=== PATIENT | male | born 2000 | race Caucasian/White ===

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

== ENCOUNTER 2020-01-25 16:34 | Emergency (ER) | payer BC, OTHER ==
[~2020-01-25] VITALS: Ht 193 cm; Wt 113.4 kg
[2020-01-25] MEDS ORDERED: SPIRONOLACTONE100 MG NG (16:49)
[2020-01-25] MEDS ORDERED: ESTRADIOL2 MG PO (16:49)
--- NOTE | 2020-01-26 15:19 | EKG ---
[facility] [address] [place] [address] Signed Normal sinus rhythm with sinus arrhythmia Normal ECG No previous ECGs available Confirmed by RENETTA POTTER DO ([id number]) on 01/26/2020 11:01:17 AM Electronically Signed By: RENETTA POTTER DO 01/26/20 1519 PATIENT NAME: MORENO MCPHERSON REREEMILYSHIRA Electrocardiogram DATE OF : [birth year] PHYSICIAN: RENETTA POTTER DO REPORT #: [id number] REPORT IS CONFIDENTIAL AND NOT TO BE RELEASED WITHOUT AUTHORIZATION
== END 2020-01-25 19:26 | disposition home or self-care (01) ==
LOC: ED 16:34
DX: R00.2 Palpitations (principal); F41.9 Anxiety disorder, unspecified; Z79.899 Other long term (current) drug therapy
CPT/HCPCS: 93005; 93010; 99284-25

== ENCOUNTER 2020-03-17 01:28 | Emergency (ER) | payer BC, OTHER ==
[~2020-03-17] VITALS: Ht 193 cm; Wt 120.2 kg
[~2020-03-17 01:28] MED LIST: ESTRADIOL2 MG PO; SPIRONOLACTONE100 MG NG
== END 2020-03-17 02:55 | disposition home or self-care (01) ==
LOC: ED 01:28
DX: F45.8 Other somatoform disorders (principal); Z79.899 Other long term (current) drug therapy
CPT/HCPCS: 99284